=== PATIENT | male | born 1990 | race African-American/Black ===

== ENCOUNTER → 2022-10-18 | Emergency (ER) | payer SELFPAY ==
[~2022-10-18] VITALS: Ht 182.9 cm; Wt 81.6 kg
[~2022-10-18] MED LIST: ONDANSETRON 4 MG ODT TAB PO ONE
[2022-10-18 15:19] VITALS: BP_SYST 149
== END | disposition left against medical advice (07) ==
LOC: SED 15:08
DX: R11.10 Vomiting, unspecified (principal); R05.9 Cough, unspecified; Z53.21 Procedure and treatment not carried out due to patient leaving prior to being seen by health care provider
CPT/HCPCS: J7030

== ENCOUNTER 2023-09-21 11:43 | Emergency (ER) | payer OTHER ==
[~2023-09-21] VITALS: Ht 177.8 cm; Wt 81.6 kg
[2023-09-21 11:45] VITALS: BP_SYST 133; PULSE 90; RESP 18; TEMP 98.9; O2SAT 96
[2023-09-21 12:28] LABS: BARBITURATE, URINE NEGATIVE (NEG <=200); BENZODIAZEPINE, URINE NEGATIVE (NEG <=150); CANNABINOID, URINE NEGATIVE (NEG <=50); COCAINE, URINE POSITIVE (NEG <=150); METHAMPHETAMINES SCREEN,URINE NEGATIVE (NEG <=500); OPIATE, URINE NEGATIVE (NEG <=100); PHENCYCLIDINE SCREEN,URINE NEGATIVE (NEG <=25); UR TRICYCLIC ANTIDEPRESSANTS NEGATIVE (NEG <=300); URINE AMPHETAMINE POSITIVE (NEG <=500); URINE METHADONE NEGATIVE (NEG <=200); URINE OXYCODONE SCREEN NEGATIVE (NEG <=100)
[2023-09-21 12:30] LABS: BASOPHILS # (AUTO) 0.1 K/uL (0.0-0.2); BASOPHILS % (AUTO) 0.9 % (0.0-2.0); EOSINOPHILS % (AUTO) 0.3 % (0.0-4.0); HEMOGLOBIN 16.2 g/dL (14.0-18.0); LYMPHOCYTES # (AUTO) 3.1 K/uL (1.0-5.5); LYMPHOCYTES % (AUTO) 28.1 % (20.5-51.5); MEAN CORPUSCULAR HEMOGLOBIN 34 pg (27-31); MEAN CORPUSCULAR HGB CONC 34 % (32-36); MEAN CORPUSCULAR VOLUME 98 fL (79.0-98.0); MONOCYTES # (AUTO) 0.5 K/uL (0.0-1.0); MONOCYTES % (AUTO) 4.6 % (1.7-9.3); NEUTROPHILS # (AUTO) 7.3 K/uL (1.8-7.7); NEUTROPHILS % (AUTO) 66.1 % (40.0-70.0); PLATELET COUNT (AUTO) 209 K/uL (130-430); RED BLOOD CELL COUNT(AUTO) 4.79 MIL/uL (4.2-6.2); RED CELL DISTRIBUTION WIDTH 14.6 % (9.0-15.0)
[2023-09-21 13:09] LABS: CALCIUM 9.1 mg/dL (8.4-11.0); CREATININE 0.85 mg/dL (0.55-1.30); POTASSIUM 3.7 mmol/L (3.5-5.1)
[2023-09-21 13:33] LABS: CKMB RELATIVE INDEX 0.5 (0.0-2.9)
[2023-09-21] MEDS: NACL 0.9% 3,000 ML IV ONE (14:16)
[2023-09-21] MEDS ORDERED: LORA-259 PO (17:06)
[2023-09-21 18:38] VITALS: BP_SYST 125; PULSE 90; RESP 18; TEMP 98.9; O2SAT 96
== END 2023-09-21 18:39 | disposition home or self-care (01) ==
LOC: SED 11:43
DX: F10.129 Alcohol abuse with intoxication, unspecified (principal); R51.9 Headache, unspecified; Z88.6 Allergy status to analgesic agent; Z79.899 Other long term (current) drug therapy
CPT/HCPCS: 99284; 96360; 70450; 96361; 80307; 80048; 82140; 82550; 82553; 85025; 36415; 83605; G0482; J7030

== ENCOUNTER 2023-10-04 19:14 | Emergency (ER) | payer OTHER ==
[~2023-10-04] VITALS: Ht 182.9 cm; Wt 79.4 kg
[~2023-10-04 19:14] MED LIST changes: +LORA-259 PO; -ONDANSETRON 4 MG ODT TAB PO ONE
[2023-10-04] MEDS: LORazepam 2 MG/ML VIAL IVP ONE (19:40)
[2023-10-04 20:19] VITALS: BP_SYST 162; PULSE 132; RESP 18; TEMP 98.2
[2023-10-04 20:20] LABS: ALANINE AMINOTRANSFERASE 63 U/L (12-78); ANION GAP 12 (5-15); ASPARTATE AMINOTRANSFERASE 97 U/L (10-37); CALCIUM 9.1 mg/dL (8.4-11.0); CARBON DIOXIDE 25 mmol/L (23-29); CHLORIDE 98 mmol/L (98-107); CREATININE 1.01 mg/dL (0.55-1.30); GFR AFRICAN AMERICAN 111 mL/min (>90); GFR NON AFRICAN-AMERICAN 92 mL/min (>90); GLUCOSE 134 mg/dL (74-106); SODIUM SERUM 135 mmol/L (136-145); TOTAL BILIRUBIN 0.4 mg/dL (0.0-1.0); TOTAL PROTEIN, SERUM 7.9 g/dL (6.4-8.3)
[2023-10-04 20:24] LABS: POTASSIUM 3.7 mmol/L (3.5-5.1)
[2023-10-04 20:29] LABS: ALCOHOL, BLOOD 159 mg/dL (<10); BILIRUBIN,DIRECT 0.1 mg/dL (0.0-0.3); UREA NITROGEN, BLOOD 2 mg/dL (8-21)
[2023-10-04 22:00] VITALS: O2SAT 97
[2023-10-04 22:35] LABS: BASOPHILS # (AUTO) 0.1 K/uL (0.0-0.2); HEMATOCRIT 37.8 % (36-54); HEMOGLOBIN 12.8 g/dL (14.0-18.0); LYMPHOCYTES # (AUTO) 1.3 K/uL (1.0-5.5); LYMPHOCYTES % (AUTO) 17.9 % (20.5-51.5); MEAN CORPUSCULAR HEMOGLOBIN 33 pg (27-31); MEAN CORPUSCULAR HGB CONC 34 % (32-36); MEAN CORPUSCULAR VOLUME 99 fL (79.0-98.0); MONOCYTES # (AUTO) 0.6 K/uL (0.0-1.0); MONOCYTES % (AUTO) 7.6 % (1.7-9.3); NEUTROPHILS # (AUTO) 5.4 K/uL (1.8-7.7); NEUTROPHILS % (AUTO) 73.5 % (40.0-70.0); PLATELET COUNT (AUTO) 166 K/uL (130-430); RED BLOOD CELL COUNT(AUTO) 3.84 MIL/uL (4.2-6.2); RED CELL DISTRIBUTION WIDTH 14.2 % (9.0-15.0); WHITE BLOOD COUNT (AUTO) 7.4 K/uL (4.8-10.8)
[2023-10-04 22:45] VITALS: BP_SYST 162; PULSE 132; RESP 18; TEMP 98.2
== END 2023-10-04 22:59 | disposition home or self-care (01) ==
LOC: SED 19:14
DX: F10.129 Alcohol abuse with intoxication, unspecified (principal); F14.10 Cocaine abuse, uncomplicated; R55 Syncope and collapse; Z88.5 Allergy status to narcotic agent; Z79.899 Other long term (current) drug therapy; Y90.6 Blood alcohol level of 120-199 mg/100 ml
CPT/HCPCS: 99284; 96374; 80076; 80048; 85025; 84484; 36415; 93005; G0482; J2060

== ENCOUNTER 2023-11-30 09:04 | Emergency (ER) | payer OTHER ==
[~2023-11-30] VITALS: Ht 182.9 cm; Wt 77.1 kg
[2023-11-30 09:16] VITALS: BP_SYST 147; PULSE 94; RESP 17; TEMP 98; O2SAT 99
[2023-11-30 09:36] VITALS: BP_SYST 154; PULSE 94; RESP 17; TEMP 98; O2SAT 99
[2023-11-30] MEDS ORDERED: DOXY100C5 PO (09:45)
== END 2023-11-30 09:54 | disposition home or self-care (01) ==
LOC: SED 09:04
DX: L04.0 Acute lymphadenitis of face, head and neck (principal); Z88.6 Allergy status to analgesic agent
CPT/HCPCS: 99283